=== PATIENT | male | born 1990 | race Caucasian/White ===

== ENCOUNTER 2021-10-29 20:55 | Emergency (ER) | payer MEDICARE, MEDICAID ==
[~2021-10-29] VITALS: Ht 182.9 cm; Wt 111.0 kg
[2021-10-29 23:02] LABS: BASOPHILS % 0.4 % (0.0-2.0); HEMATOCRIT. 38.3 % (42.0-52.0); MEAN CORPUSCULAR HEMOGLOBIN 28.5 pg (28.0-32.0); MEAN CORPUSCULAR VOLUME 83.9 fL (80.0-94.0); MEAN PLATELET VOLUME 8.2 fl (7.4-10.4); MONOCYTES % 10.6 % (2.0-8.0); PLATELET 172 x1000/uL (130-400); RED BLOOD CELL COUNT 4.56 mill/uL (4.7-6.1); RED CELL DISTRIBUTION WIDTH 14.9 % (11.6-14.6)
[2021-10-29 23:12] LABS: CHLORIDE 108 mEq/L (98-107)
[2021-10-29 23:43] LABS: CLARITY URINE CLEAR (CLEAR); COLOR URINE YELLOW (YELLOW); KETONES URINE TRACE (NEGATIVE); LEUKOCYTE ESTERASE URINE NEGATIVE (NEGATIVE); NITRITE URINE NEGATIVE (NEGATIVE); OCCULT BLOOD URINE NEGATIVE (NEGATIVE); PH URINE 6.5 (4.5-8.0); PROTEIN URINE NEGATIVE (NEGATIVE); SPECIFIC GRAVITY URINE 1.028 (1.005-1.030); UROBILINOGEN URINE 0.2 E.U./dL (0.2-1.0)
[2021-10-29 23:56] VITALS: BP 113/60
[2021-10-30] MEDS ORDERED: IBUPROFEN 600MG TABLET PO ONE
== END 2021-10-30 01:46 ==
LOC: ER 20:55
DX: G40.909 Epilepsy, unspecified, not intractable, without status epilepticus (principal); F99 Mental disorder, not otherwise specified; Z85.9 Personal history of malignant neoplasm, unspecified; Z98.890 Other specified postprocedural states; Z88.8 Allergy status to other drugs, medicaments and biological substances
CPT/HCPCS: 36415; 80053; 81003; 85025; 99284

== ENCOUNTER 2021-11-02 01:47 | Emergency (ER) | payer MEDICARE, MEDICAID ==
[~2021-11-02] VITALS: Ht 193 cm; Wt 130.0 kg
[2021-11-02] MEDS ORDERED: ONDANSETRON HCL 4MG/2ML INJ IV STA (03:17)
[2021-11-02] MEDS ORDERED: MORPHINE SULFATE 4 MG/ML CPJ (NOT FOR IM USE) IV STA (03:17)
[2021-11-02] MEDS ORDERED: LEVETIRACETAM 1000MG PREMIX 100 ML IV ONE (03:30)
[2021-11-02 04:03] LABS: CHLORIDE 107 mEq/L (98-107)
[2021-11-02 04:04] LABS: BASOPHILS % 0.3 % (0.0-2.0); EOSINOPHILS % 1.2 % (0.0-5.0); HEMATOCRIT. 42.2 % (42.0-52.0); HEMOGLOBIN. 13.9 g/dL (14.0-18.0); LYMPHOCYTES % 22.5 % (20.0-50.0); MEAN CORPUSCULAR HEMOGLOBIN 28.1 pg (28.0-32.0); MEAN CORPUSCULAR VOLUME 85.3 fL (80.0-94.0); MEAN PLATELET VOLUME 8.1 fl (7.4-10.4); MONOCYTES % 10.4 % (2.0-8.0); NEUTROPHILS % 65.6 % (40.0-76.0); PLATELET 156 x1000/uL (130-400); RED BLOOD CELL COUNT 4.94 mill/uL (4.7-6.1); RED CELL DISTRIBUTION WIDTH 14.8 % (11.6-14.6)
[2021-11-02 15:28] VITALS: BP 116/64
== END 2021-11-02 16:07 | disposition home or self-care (01) ==
LOC: ER 01:47
DX: R56.9 Unspecified convulsions (principal); Z98.890 Other specified postprocedural states; Z88.8 Allergy status to other drugs, medicaments and biological substances; Z91.041 Radiographic dye allergy status
CPT/HCPCS: 36415; 70450; 72125; 80053; 85025; 96365; 96375; 99285; J1953; J2270; J2405

== ENCOUNTER 2021-11-10 18:28 | Emergency (ER) | payer MEDICARE, MEDICAID ==
[~2021-11-10] VITALS: Ht 157.5 cm; Wt 100.0 kg
[2021-11-10] MEDS ORDERED: LEVETIRACETAM 1000MG PREMIX 100 ML IV ONE (19:00)
[2021-11-10] MEDS ORDERED: MIDAZOLAM HCL 2 MG/2 ML VIAL IV ONE (19:15)
[2021-11-10 19:42] LABS: BASOPHILS % 0.4 % (0.0-2.0); EOSINOPHILS % 2.6 % (0.0-5.0); HEMATOCRIT. 36.1 % (42.0-52.0); HEMOGLOBIN. 12.1 g/dL (14.0-18.0); LYMPHOCYTES % 23.8 % (20.0-50.0); MEAN CORPUSCULAR HEMOGLOBIN 28.7 pg (28.0-32.0); MEAN CORPUSCULAR VOLUME 85.3 fL (80.0-94.0); MEAN PLATELET VOLUME 7.8 fl (7.4-10.4); MONOCYTES % 11.5 % (2.0-8.0); NEUTROPHILS % 61.7 % (40.0-76.0); PLATELET 191 x1000/uL (130-400); RED BLOOD CELL COUNT 4.23 mill/uL (4.7-6.1); RED CELL DISTRIBUTION WIDTH 14.4 % (11.6-14.6)
[2021-11-10] MEDS ORDERED: SODIUM CHLORIDE 0.9% 1,000 ML IV ONE (19:45)
[2021-11-10 19:47] LABS: CHLORIDE 104 mEq/L (98-107)
[2021-11-10 20:01] LABS: ETHANOL BLOOD < 10 mg/dL
[2021-11-11 07:00] VITALS: BP 100/72
== END 2021-11-11 08:08 | disposition home or self-care (01) ==
LOC: ER 18:28
DX: G40.909 Epilepsy, unspecified, not intractable, without status epilepticus (principal); F20.9 Schizophrenia, unspecified; F31.9 Bipolar disorder, unspecified; F41.9 Anxiety disorder, unspecified; Z85.9 Personal history of malignant neoplasm, unspecified; Z88.8 Allergy status to other drugs, medicaments and biological substances; Z91.041 Radiographic dye allergy status
CPT/HCPCS: 36415; 80053; 80320; 85025; 96374; 96375; 99285; J1953; J2250; J7030; G0480

== ENCOUNTER 2021-11-17 21:33 | Emergency (ER) | payer MEDICARE, OTHER ==
[~2021-11-17] VITALS: Ht 188 cm; Wt 96.0 kg
[2021-11-18 00:10] LABS: BASOPHILS % 0.6 % (0.0-2.0); EOSINOPHILS % 3.2 % (0.0-5.0); HEMATOCRIT. 38.4 % (42.0-52.0); HEMOGLOBIN. 13.1 g/dL (14.0-18.0); LYMPHOCYTES % 39.6 % (20.0-50.0); MEAN CORPUSCULAR HEMOGLOBIN 28.8 pg (28.0-32.0); MEAN CORPUSCULAR VOLUME 84.4 fL (80.0-94.0); MEAN PLATELET VOLUME 7.4 fl (7.4-10.4); MONOCYTES % 6.7 % (2.0-8.0); NEUTROPHILS % 49.9 % (40.0-76.0); PLATELET 308 x1000/uL (130-400); RED BLOOD CELL COUNT 4.55 mill/uL (4.7-6.1); RED CELL DISTRIBUTION WIDTH 14.5 % (11.6-14.6)
[2021-11-18 00:13] LABS: CHLORIDE 104 mEq/L (98-107)
[2021-11-18 00:21] LABS: ETHANOL BLOOD < 10 mg/dL
[2021-11-18 00:43] LABS: CLARITY URINE CLEAR (CLEAR); COLOR URINE YELLOW (YELLOW); KETONES URINE NEGATIVE (NEGATIVE); LEUKOCYTE ESTERASE URINE NEGATIVE (NEGATIVE); NITRITE URINE NEGATIVE (NEGATIVE); OCCULT BLOOD URINE NEGATIVE (NEGATIVE); PH URINE 7.5 (4.5-8.0); PROTEIN URINE NEGATIVE (NEGATIVE); SPECIFIC GRAVITY URINE 1.017 (1.005-1.030); UROBILINOGEN URINE 0.2 E.U./dL (0.2-1.0)
[2021-11-18 01:00] LABS: *AMPHETAMINES SCREEN URINE NEGATIVE (NEGATIVE); *BARBITURATES SCREEN URINE NEGATIVE (NEGATIVE); *BENZODIAZEPINES SCREEN URINE NEGATIVE (NEGATIVE); *COCAINE SCREEN URINE NEGATIVE (NEGATIVE); CANNABINOID URINE SCREEN NEGATIVE (NEGATIVE); METHADONE URINE SCREEN NEGATIVE (NEGATIVE); OPIATES URINE SCREEN NEGATIVE (NEGATIVE); PHENCYCLIDINE URINE SCREEN NEGATIVE (NEGATIVE)
[2021-11-18] MEDS: LEVETIRACETAM 500MG PREMIX 100 ML IV NR ×2 (02:00→03:16)
[2021-11-18 09:18] VITALS: BP 106/61
== END 2021-11-18 09:39 | disposition home or self-care (01) ==
LOC: ER 11-18 09:34
DX: G40.909 Epilepsy, unspecified, not intractable, without status epilepticus (principal); F32.A Depression, unspecified; F41.9 Anxiety disorder, unspecified; F20.9 Schizophrenia, unspecified; Z87.828 Personal history of other (healed) physical injury and trauma; Z88.8 Allergy status to other drugs, medicaments and biological substances; Z91.041 Radiographic dye allergy status
CPT/HCPCS: 36415; 80053; 80305; 80320; 81003; 85025; 96365; 99284; J1953; G0480

== ENCOUNTER 2021-11-22 23:43 | Inpatient (IN) | payer MEDICARE, OTHER ==
[~2021-11-22] VITALS: Ht 193 cm; Wt 117.7 kg
[2021-11-23 00:53] LABS: BASOPHILS % 0.4 % (0.0-2.0); EOSINOPHILS % 1.9 % (0.0-5.0); HEMATOCRIT. 36.7 % (42.0-52.0); HEMOGLOBIN. 12.3 g/dL (14.0-18.0); LYMPHOCYTES % 40.1 % (20.0-50.0); MEAN CORPUSCULAR HEMOGLOBIN 28.5 pg (28.0-32.0); MEAN CORPUSCULAR VOLUME 85.6 fL (80.0-94.0); MEAN PLATELET VOLUME 8.1 fl (7.4-10.4); MONOCYTES % 8.3 % (2.0-8.0); NEUTROPHILS % 49.3 % (40.0-76.0); PLATELET 234 x1000/uL (130-400); RED BLOOD CELL COUNT 4.29 mill/uL (4.7-6.1); RED CELL DISTRIBUTION WIDTH 14.5 % (11.6-14.6)
[2021-11-23 02:05] LABS: CHLORIDE 108 mEq/L (98-107); ETHANOL BLOOD < 10 mg/dL
[2021-11-23] MEDS ORDERED: LEVETIRACETAM 500MG PREMIX 100 ML IV NR (04:00)
[2021-11-23] MEDS ORDERED: DIAZEPAM 5 MG/ML 2ML CPJ IV PRN (07:45)
[2021-11-23] MEDS ORDERED: MAGNESIUM/ALUMINUM HYDROXIDE/SIMETHICONE 30ML UDC PO PRN (07:45)
[2021-11-23] MEDS ORDERED: GUAIFENESIN 200MG/10ML SUGAR FREE UDC PO PRN (07:45)
[2021-11-23] MEDS ORDERED: IPRATROPIUM/ALBUTEROL 0.5-3(2.5)MG/3ML NEB NEB PRN (07:45)
[2021-11-23] MEDS ORDERED: ONDANSETRON HCL 4MG/2ML INJ IV PRN (07:45)
[2021-11-23] MEDS ORDERED: CLONIDINE 0.1MG TABLET PO PRN (07:45)
[2021-11-23] MEDS ORDERED: ACETAMINOPHEN 325MG TABLET PO PRN ×2 (07:45)
[2021-11-23] MEDS ORDERED: DOCUSATE SODIUM 100MG CAPSULE PO PRN (07:45)
[2021-11-23] MEDS ORDERED: KETOROLAC 15MG/ML VIAL IV PRN (07:45)
[2021-11-23 09:00] VITALS: BP 99/52
[2021-11-23 10:16] LABS: T4 FREE 0.71 ng/dL (0.76-1.46)
[2021-11-23] MEDS: ENOXAPARIN 40MG/0.4ML SYR SUBCUT SCH (11:10)
[2021-11-23] MEDS: DEXT 5%/LACTATED RINGERS 1,000 ML IV SCH ×2 (11:32→20:27)
[2021-11-23] MEDS: DIVALPROEX SODIUM 500MG DR TABLET PO SCH ×3 (11:32→21:18)
[2021-11-23 11:38] LABS: FOLIC ACID (FOLATE) SERUM 14.3 ng/mL (>5.38)
[2021-11-23 12:00] VITALS: BP 97/50
[2021-11-23] MEDS: LEVETIRACETAM 1000MG PREMIX 100 ML IV SCH ×2 (13:44→20:27)
[2021-11-23 15:05] VITALS: BP 99/52
[2021-11-23 16:00] VITALS: BP 106/55
[2021-11-23 19:33] LABS: CREATINE KINASE 160 IU/L (39-308); CREATINE KINASE MB FRACTION < 1.0 ng/mL (0.5-3.6)
[2021-11-23 20:00] VITALS: BP 106/62
[2021-11-23] MEDS ORDERED: PHENYTOIN SODIUM 500 MG in SODIUM CHLORIDE 0.9% 50 ML IV NR (20:00)
[2021-11-23] MEDS ORDERED: LEVETIRACETAM 500MG PREMIX 100 ML IV SCH (21:00)
[2021-11-23] MEDS: PHENYTOIN SODIUM EXTENDED 100MG CAPSULE PO SCH (21:21)
[2021-11-23 21:35] VITALS: BP 123/74
[2021-11-24] VITALS (7 sets, daily range): BP systolic 89–104; BP diastolic 43–52
[2021-11-24 00:02] LABS: CREATINE KINASE 144 IU/L (39-308); CREATINE KINASE MB FRACTION < 1.0 ng/mL (0.5-3.6)
[2021-11-24] MEDS: PHENYTOIN SODIUM EXTENDED 100MG CAPSULE PO SCH ×3 (05:05→21:33)
[2021-11-24] MEDS: DIVALPROEX SODIUM 500MG DR TABLET PO SCH ×3 (05:05→21:32)
[2021-11-24] MEDS: LEVOTHYROXINE SODIUM 50MCG TABLET PO SCH (06:42)
[2021-11-24 07:38] LABS: CHLORIDE 106 mEq/L (98-107)
[2021-11-24 07:40] LABS: BASOPHILS % 0.5 % (0.0-2.0); EOSINOPHILS % 1.8 % (0.0-5.0); HEMATOCRIT. 40.1 % (42.0-52.0); HEMOGLOBIN. 13.2 g/dL (14.0-18.0); LYMPHOCYTES % 25.9 % (20.0-50.0); MEAN CORPUSCULAR HEMOGLOBIN 28.7 pg (28.0-32.0); MEAN CORPUSCULAR VOLUME 86.7 fL (80.0-94.0); MEAN PLATELET VOLUME 8.5 fl (7.4-10.4); MONOCYTES % 7.1 % (2.0-8.0); NEUTROPHILS % 64.7 % (40.0-76.0); PLATELET 210 x1000/uL (130-400); RED BLOOD CELL COUNT 4.62 mill/uL (4.7-6.1); RED CELL DISTRIBUTION WIDTH 14.4 % (11.6-14.6)
[2021-11-24 07:58] LABS: PHOSPHORUS 3.2 mg/dL (2.5-4.9)
[2021-11-24 08:22] LABS: CLARITY URINE CLEAR (CLEAR); COLOR URINE YELLOW (YELLOW); KETONES URINE NEGATIVE (NEGATIVE); LEUKOCYTE ESTERASE URINE 1+ (NEGATIVE); NITRITE URINE NEGATIVE (NEGATIVE); OCCULT BLOOD URINE NEGATIVE (NEGATIVE); PH URINE 5.5 (4.5-8.0); PROTEIN URINE NEGATIVE (NEGATIVE); SPECIFIC GRAVITY URINE 1.015 (1.005-1.030); UROBILINOGEN URINE 0.2 E.U./dL (0.2-1.0)
[2021-11-24 08:41] LABS: *AMPHETAMINES SCREEN URINE NEGATIVE (NEGATIVE); *BARBITURATES SCREEN URINE NEGATIVE (NEGATIVE); *BENZODIAZEPINES SCREEN URINE PRESUMTIVE POSITIVE (NEGATIVE); *COCAINE SCREEN URINE NEGATIVE (NEGATIVE); CANNABINOID URINE SCREEN NEGATIVE (NEGATIVE); METHADONE URINE SCREEN NEGATIVE (NEGATIVE); OPIATES URINE SCREEN NEGATIVE (NEGATIVE); PHENCYCLIDINE URINE SCREEN NEGATIVE (NEGATIVE)
[2021-11-24] MEDS: LEVETIRACETAM 1000MG PREMIX 100 ML IV SCH ×2 (09:35→21:32)
[2021-11-24] MEDS: ENOXAPARIN 40MG/0.4ML SYR SUBCUT SCH (09:36)
[2021-11-24] MEDS: DEXT 5%/LACTATED RINGERS 1,000 ML IV SCH ×2 (09:36→23:40)
[2021-11-24] MEDS: ENOXAPARIN 30MG/0.3ML SYR SUBCUT SCH (21:32)
[2021-11-25] VITALS (7 sets, daily range): BP systolic 90–103; BP diastolic 50–64
[2021-11-25] MEDS ORDERED: KEPPSOL MT (03:13)
[2021-11-25] MEDS ORDERED: DIVA-18 MT (03:13)
[2021-11-25] MEDS ORDERED: GABA-529 PO (03:13)
[2021-11-25] MEDS ORDERED: PALI156D IM (03:13)
[2021-11-25] MEDS ORDERED: CHLO10TA9 MT (03:13)
[2021-11-25] MEDS: PHENYTOIN SODIUM EXTENDED 100MG CAPSULE PO SCH ×3 (06:20→20:24)
[2021-11-25] MEDS: DIVALPROEX SODIUM 500MG DR TABLET PO SCH ×3 (06:21→20:23)
[2021-11-25] MEDS: LEVOTHYROXINE SODIUM 50MCG TABLET PO SCH (06:21)
[2021-11-25 07:27] LABS: HEMATOCRIT 37.9 % (42.0-52.0); HEMOGLOBIN 12.7 g/dL (14.0-18.0); MEAN CORPUSCULAR HEMOGLOBIN 28.8 pg (28.0-32.0); MEAN CORPUSCULAR VOLUME 85.7 fL (80.0-94.0); PLATELET 205 x1000/uL (130-400); RED BLOOD CELL COUNT 4.42 mill/uL (4.7-6.1); RED CELL DISTRIBUTION WIDTH 14.2 % (11.6-14.6)
[2021-11-25] MEDS: ENOXAPARIN 30MG/0.3ML SYR SUBCUT SCH ×2 (08:36→20:24)
[2021-11-25] MEDS: LEVETIRACETAM 500MG TABLET PO SCH ×2 (08:37→18:09)
[2021-11-25 08:38] LABS: CHLORIDE 105 mEq/L (98-107)
[2021-11-25] MEDS: MIDODRINE HCL 5MG TABLET PO SCH ×3 (10:57→18:10)
[2021-11-25] MEDS ORDERED: PHENYTOIN SODIUM 500 MG in SODIUM CHLORIDE 0.9% 50 ML IV SCH (13:00)
[2021-11-25] MEDS: DEXT 5%/LACTATED RINGERS 1,000 ML IV SCH (13:19)
[2021-11-26] VITALS: BP 101/50
[2021-11-26 04:00] VITALS: BP 91/53
[2021-11-26] MEDS: PHENYTOIN SODIUM EXTENDED 100MG CAPSULE PO SCH ×3 (06:36→20:10)
[2021-11-26] MEDS: LEVOTHYROXINE SODIUM 50MCG TABLET PO SCH (06:36)
[2021-11-26] MEDS: DEXT 5%/LACTATED RINGERS 1,000 ML IV SCH ×2 (06:36→17:16)
[2021-11-26] MEDS: DIVALPROEX SODIUM 500MG DR TABLET PO SCH ×3 (06:36→20:08)
[2021-11-26 08:00] VITALS: BP 92/45
[2021-11-26] MEDS: ENOXAPARIN 30MG/0.3ML SYR SUBCUT SCH ×2 (09:18→20:07)
[2021-11-26] MEDS: LEVETIRACETAM 500MG TABLET PO SCH ×2 (09:18→17:16)
[2021-11-26] MEDS: MIDODRINE HCL 5MG TABLET PO SCH ×3 (09:21→17:16)
[2021-11-26 12:00] VITALS: BP 104/52
[2021-11-26 16:00] VITALS: BP 87/42
[2021-11-26 20:00] VITALS: BP 100/45
[2021-11-27] VITALS: BP_SYST 103; BP_SYST 93; BP_DIAS 43; BP_DIAS 50
[2021-11-27 04:10] VITALS: BP 91/43
[2021-11-27] MEDS: PHENYTOIN SODIUM EXTENDED 100MG CAPSULE PO SCH ×2 (05:44→13:11)
[2021-11-27] MEDS: DEXT 5%/LACTATED RINGERS 1,000 ML IV SCH (05:47)
[2021-11-27] MEDS: LEVOTHYROXINE SODIUM 50MCG TABLET PO SCH (05:48)
[2021-11-27] MEDS: DIVALPROEX SODIUM 500MG DR TABLET PO SCH ×2 (05:48→13:14)
[2021-11-27 08:30] VITALS: BP 134/42
[2021-11-27] MEDS: LEVETIRACETAM 500MG TABLET PO SCH ×2 (09:42→17:50)
[2021-11-27] MEDS: MIDODRINE HCL 5MG TABLET PO SCH ×3 (09:42→17:49)
[2021-11-27] MEDS: ENOXAPARIN 30MG/0.3ML SYR SUBCUT SCH (09:43)
[2021-11-27 12:00] VITALS: BP 98/43
[2021-11-27 20:37] VITALS: BP 98/43
[2021-12-01] MEDS ORDERED: LAM25 PO (14:45)
[2021-12-01] MEDS ORDERED: RISP1 PO (14:45)
[2021-12-01] MEDS ORDERED: LACO100T2 PO (14:45)
[2021-12-01] MEDS ORDERED: TH25 PO (14:45)
[2021-12-01] MEDS ORDERED: KEPP500 PO (14:45)
[2021-12-01] MEDS ORDERED: QUET50TA PO (14:45)
[2021-12-01] MEDS ORDERED: CLON0.5T4 PO ×2 (14:45→20:42)
== END 2021-11-27 20:40 | DRG 100 ==
LOC: ER 23:43 → 6WST 11-23 05:15 → ENRESERV 11-23 08:03 → 6WST 11-23 09:05
PROVIDERS: ADMIT Internal Medicine; ATTEND Internal Medicine
DX: G40.901 Epilepsy, unspecified, not intractable, with status epilepticus (principal); G92.8 Other toxic encephalopathy; J96.01 Acute respiratory failure with hypoxia; G93.41 Metabolic encephalopathy; E44.1 Mild protein-calorie malnutrition; F25.9 Schizoaffective disorder, unspecified; F41.9 Anxiety disorder, unspecified; E03.9 Hypothyroidism, unspecified; I95.89 Other hypotension; Z88.8 Allergy status to other drugs, medicaments and biological substances; F31.9 Bipolar disorder, unspecified; Z68.31 Body mass index [BMI] 31.0-31.9, adult; F17.210 Nicotine dependence, cigarettes, uncomplicated; Z91.041 Radiographic dye allergy status
CPT/HCPCS: 36415; 71045; 80048; 80053; 80185; 80305; 80320; 81003; 82550; 82553; 82607; 82746; 82962; 83540; 83550; 83605; 83735; 84100; 84145; 84439; 84443; 84484; 85025; 85027; 85379; 87077; 87186; 93970; 99285; J1165; J1650; J1953; G0480

== ENCOUNTER 2021-11-28 18:57 | Inpatient (IN) | payer MEDICARE, OTHER ==
[~2021-11-28] VITALS: Ht 193 cm; Wt 104.3 kg
[~2021-11-28 18:57] MED LIST: CHLO10TA9 MT; DIVA-18 MT; GABA-529 PO; KEPPSOL MT; PALI156D IM
[2021-11-28] MEDS ORDERED: LEVETIRACETAM 500MG PREMIX 100 ML IV ONE (19:15)
[2021-11-28 21:55] LABS: CHLORIDE 108 mEq/L (98-107)
[2021-11-28 21:56] LABS: BASOPHILS % 0.9 % (0.0-2.0); HEMATOCRIT. 35.3 % (42.0-52.0); HEMOGLOBIN. 11.8 g/dL (14.0-18.0); LYMPHOCYTES % 41.9 % (20.0-50.0); MEAN CORPUSCULAR HEMOGLOBIN 28.6 pg (28.0-32.0); MEAN CORPUSCULAR VOLUME 85.6 fL (80.0-94.0); MEAN PLATELET VOLUME 8.6 fl (7.4-10.4); MONOCYTES % 8.7 % (2.0-8.0); NEUTROPHILS % 46.5 % (40.0-76.0); PLATELET 197 x1000/uL (130-400); RED BLOOD CELL COUNT 4.13 mill/uL (4.7-6.1)
[2021-11-28 22:02] LABS: ETHANOL BLOOD < 10 mg/dL
[2021-11-29] MEDS ORDERED: NOREPINEPHRINE 8MG/250ML PMX 250 ML IV ONE (02:30)
[2021-11-29] MEDS ORDERED: NOREPINEPHRINE 8MG/250ML PMX 250 ML IV NR (03:00)
[2021-11-29] MEDS ORDERED: HYDROCODONE/ACETAMINOPHEN 5/325MG TABLET PO PRN (07:15)
[2021-11-29] MEDS ORDERED: MAGNESIUM/ALUMINUM HYDROXIDE/SIMETHICONE 30ML UDC PO PRN (07:15)
[2021-11-29] MEDS ORDERED: IPRATROPIUM/ALBUTEROL 0.5-3(2.5)MG/3ML NEB NEB PRN (07:15)
[2021-11-29] MEDS ORDERED: ONDANSETRON HCL 4MG/2ML INJ IV PRN (07:15)
[2021-11-29] MEDS ORDERED: ACETAMINOPHEN 325MG TABLET PO PRN ×2 (07:15)
[2021-11-29] MEDS ORDERED: GUAIFENESIN 200MG/10ML SUGAR FREE UDC PO PRN (07:15)
[2021-11-29] MEDS: SODIUM CHLORIDE 0.45% 1,000 ML IV SCH ×2 (07:15→22:14)
[2021-11-29] MEDS ORDERED: CLONIDINE 0.1MG TABLET PO PRN (07:15)
[2021-11-29] MEDS ORDERED: LIDOCAINE HCL/PF 1% 10 MG/ML 5ML VIAL ONE (08:21)
[2021-11-29 08:34] LABS: BASOPHILS % 0.3 % (0.0-2.0); EOSINOPHILS % 2.1 % (0.0-5.0); HEMATOCRIT. 35.8 % (42.0-52.0); LYMPHOCYTES % 39.7 % (20.0-50.0); MEAN CORPUSCULAR HEMOGLOBIN 28.8 pg (28.0-32.0); MEAN CORPUSCULAR VOLUME 85.7 fL (80.0-94.0); MEAN PLATELET VOLUME 8.1 fl (7.4-10.4); MONOCYTES % 8.6 % (2.0-8.0); NEUTROPHILS % 49.3 % (40.0-76.0); PLATELET 172 x1000/uL (130-400); RED BLOOD CELL COUNT 4.17 mill/uL (4.7-6.1); RED CELL DISTRIBUTION WIDTH 13.9 % (11.6-14.6)
[2021-11-29 08:39] LABS: CHLORIDE 112 mEq/L (98-107)
[2021-11-29 08:53] LABS: PHOSPHORUS 2.6 mg/dL (2.5-4.9); T4 FREE 0.75 ng/dL (0.76-1.46); TOTAL IRON BINDING CAPACITY 235 ug/dL (250-450)
[2021-11-29] MEDS: ENOXAPARIN 40MG/0.4ML SYR SUBCUT SCH (09:00)
[2021-11-29 13:30] VITALS: BP 101/54
[2021-11-29 15:00] VITALS: BP 157/60
[2021-11-29] MEDS ORDERED: MIDAZOLAM HCL 2 MG/2 ML VIAL IV PRN (15:15)
[2021-11-29 16:00] VITALS: BP 103/56
[2021-11-29] MEDS ORDERED: NALOXONE HCL 0.4MG/ML VIAL IV PRN (16:00)
[2021-11-29 16:30] LABS: FOLIC ACID (FOLATE) SERUM 9.5 ng/mL (>5.38)
[2021-11-29 20:00] VITALS: BP 85/42
[2021-11-29] MEDS: LEVETIRACETAM 500MG TABLET PO SCH (21:52)
[2021-11-29] MEDS: LAMOTRIGINE 25MG TABLET PO SCH (21:52)
[2021-11-29] MEDS: LACOSAMIDE 100 MG TABLET PO SCH (21:53)
[2021-11-30] VITALS: BP 85/40
[2021-11-30 04:00] VITALS: BP 84/44
[2021-11-30 07:30] LABS: BASOPHILS % 0.3 % (0.0-2.0); EOSINOPHILS % 2.2 % (0.0-5.0); HEMATOCRIT. 35.5 % (42.0-52.0); HEMOGLOBIN. 12.1 g/dL (14.0-18.0); LYMPHOCYTES % 32.1 % (20.0-50.0); MEAN CORPUSCULAR HEMOGLOBIN 29.2 pg (28.0-32.0); MEAN PLATELET VOLUME 8.8 fl (7.4-10.4); MONOCYTES % 9.3 % (2.0-8.0); NEUTROPHILS % 56.1 % (40.0-76.0); PLATELET 178 x1000/uL (130-400); RED BLOOD CELL COUNT 4.13 mill/uL (4.7-6.1); RED CELL DISTRIBUTION WIDTH 14.4 % (11.6-14.6)
[2021-11-30 08:00] VITALS: BP 100/48
[2021-11-30] MEDS: LACOSAMIDE 100 MG TABLET PO SCH ×2 (08:41→17:33)
[2021-11-30] MEDS: LEVETIRACETAM 500MG TABLET PO SCH ×2 (08:42→22:11)
[2021-11-30] MEDS: LAMOTRIGINE 25MG TABLET PO SCH (08:42)
[2021-11-30] MEDS: SODIUM CHLORIDE 0.45% 1,000 ML IV SCH ×3 (08:43→22:25)
[2021-11-30] MEDS: ENOXAPARIN 40MG/0.4ML SYR SUBCUT SCH (08:45)
[2021-11-30 09:02] LABS: CHLORIDE 109 mEq/L (98-107)
[2021-11-30] MEDS: RISPERIDONE 1MG TABLET PO SCH (11:39)
[2021-11-30 12:00] VITALS: BP 100/56
[2021-11-30] MEDS ORDERED: GADOTERATE MEGLUMINE 5 MMOL/10 ML VIAL IV ONE (13:50)
[2021-11-30] MEDS: CHLORPROMAZINE HCL 25 MG TABLET PO SCH ×2 (15:22→23:55)
[2021-11-30 16:00] VITALS: BP 97/51
[2021-11-30] MEDS ORDERED: DIPHENHYDRAMINE 25MG CAPSULE PO PRN (19:43)
[2021-11-30 20:00] VITALS: BP 97/52
[2021-11-30] MEDS: ENOXAPARIN 30MG/0.3ML SYR SUBCUT SCH (22:11)
[2021-11-30] MEDS: CLONAZEPAM 0.5MG TABLET PO SCH (22:11)
[2021-11-30] MEDS: QUETIAPINE FUMARATE 50MG TABLET PO SCH (22:55)
[2021-12-01] VITALS: BP 103/68
[2021-12-01 04:00] VITALS: BP 93/56
[2021-12-01] MEDS: CHLORPROMAZINE HCL 25 MG TABLET PO SCH ×2 (05:53→15:21)
[2021-12-01 08:00] VITALS: BP 93/59
[2021-12-01] MEDS: SODIUM CHLORIDE 0.45% 1,000 ML IV SCH ×2 (09:32→18:22)
[2021-12-01] MEDS: LEVETIRACETAM 500MG TABLET PO SCH ×2 (09:32→21:37)
[2021-12-01] MEDS: LAMOTRIGINE 25MG TABLET PO SCH (09:32)
[2021-12-01] MEDS: LACOSAMIDE 100 MG TABLET PO SCH ×2 (09:32→18:05)
[2021-12-01] MEDS: CLONAZEPAM 0.5MG TABLET PO SCH ×2 (09:33→17:00)
[2021-12-01] MEDS: QUETIAPINE FUMARATE 50MG TABLET PO SCH ×2 (09:33→21:38)
[2021-12-01] MEDS: ENOXAPARIN 30MG/0.3ML SYR SUBCUT SCH ×2 (09:33→21:38)
[2021-12-01] MEDS: RISPERIDONE 1MG TABLET PO SCH (09:33)
[2021-12-01 12:30] VITALS: BP 91/51
[2021-12-01] MEDS ORDERED: QUET50TA PO (14:45)
[2021-12-01] MEDS ORDERED: CLON0.5T4 PO ×2 (14:45→20:42)
[2021-12-01] MEDS ORDERED: TH25 PO (14:45)
[2021-12-01] MEDS ORDERED: LACO100T2 PO (14:45)
[2021-12-01] MEDS ORDERED: RISP1 PO (14:45)
[2021-12-01] MEDS ORDERED: LAM25 PO (14:45)
[2021-12-01] MEDS ORDERED: KEPP500 PO (14:45)
[2021-12-01 16:00] VITALS: BP 92/61
[2021-12-01 20:00] VITALS: BP 94/54
[2021-12-01] MEDS ORDERED: CLONAZEPAM 0.5MG TABLET PO SCH (21:00)
[2021-12-02] VITALS: BP 93/48
[2021-12-02] MEDS: CHLORPROMAZINE HCL 25 MG TABLET PO SCH ×3 (00:32→14:34)
[2021-12-02 04:00] VITALS: BP 99/60
[2021-12-02] MEDS: SODIUM CHLORIDE 0.45% 1,000 ML IV SCH (04:44)
[2021-12-02 08:00] VITALS: BP 118/49
[2021-12-02] MEDS: QUETIAPINE FUMARATE 50MG TABLET PO SCH (09:25)
[2021-12-02] MEDS: LACOSAMIDE 100 MG TABLET PO SCH (09:26)
[2021-12-02] MEDS: LAMOTRIGINE 25MG TABLET PO SCH (09:27)
[2021-12-02] MEDS: LEVETIRACETAM 500MG TABLET PO SCH (09:27)
[2021-12-02] MEDS: RISPERIDONE 1MG TABLET PO SCH (09:27)
[2021-12-02] MEDS: ENOXAPARIN 30MG/0.3ML SYR SUBCUT SCH (09:28)
[2021-12-02 12:30] VITALS: BP 95/58
[2021-12-02 12:55] VITALS: BP 95/58
== END 2021-12-02 16:35 | DRG 101 ==
LOC: ER 18:57 → EDBEDREQTM 11-29 02:00 → EDBEDREQ 11-29 02:00 → MICUSO 11-29 02:30 → EDBEDREQDT 11-29 02:35 → EDBEDREQTM 11-29 02:35 → EDBEDREQSVC 11-29 02:35 → EDBEDREQ 11-29 02:35 → SUPCPDRO 11-29 06:50 → ENRESERV 11-29 07:28 → EDBEDREQSVC 11-29 09:41 → 8WST 11-29 13:52
PROVIDERS: ADMIT Internal Medicine; ATTEND Internal Medicine
PROC: 02HV33Z Insertion of Infusion Device into Superior Vena Cava, Percutaneous Approach (ICD-10-PCS; 2021-11-29)
PROC: B548ZZA Ultrasonography of Superior Vena Cava, Guidance (ICD-10-PCS; 2021-11-29)
PROC: 4A10X4Z Monitoring of Central Nervous Electrical Activity, External Approach (ICD-10-PCS; principal; 2021-12-01)
DX: G40.411 Other generalized epilepsy and epileptic syndromes, intractable, with status epilepticus (principal); I95.9 Hypotension, unspecified; F17.210 Nicotine dependence, cigarettes, uncomplicated; F20.9 Schizophrenia, unspecified; F31.9 Bipolar disorder, unspecified; Z20.822 Contact with and (suspected) exposure to COVID-19; F41.9 Anxiety disorder, unspecified; Z88.8 Allergy status to other drugs, medicaments and biological substances; Z79.899 Other long term (current) drug therapy; Z85.47 Personal history of malignant neoplasm of testis
CPT/HCPCS: 36415; 36573; 70553; 71045; 80048; 80053; 80185; 80320; 80339; 82542; 82607; 82728; 82746; 83540; 83550; 83735; 84100; 84439; 84443; 85025; 87426; 93005; 95816; 99291; A9577; C1725; J1650; J1953; J3490; Q0161; G0480

== ENCOUNTER 2021-12-17 20:46 | Emergency (ER) | payer MEDICARE, OTHER ==
[~2021-12-17] VITALS: Ht 182.9 cm; Wt 91.0 kg
[~2021-12-17 20:46] MED LIST changes: -CHLO10TA9 MT; +CLON0.5T4 PO; -DIVA-18 MT; +KEPP500 PO; -KEPPSOL MT; +LACO100T2 PO; +LAM25 PO; +QUET50TA PO; +RISP1 PO; +TH25 PO
[2021-12-17] MEDS ORDERED: LEVETIRACETAM 500MG PREMIX 100 ML IV ONE (21:00)
[2021-12-17 21:52] LABS: BASOPHILS % 0.6 % (0.0-2.0); EOSINOPHILS % 2.5 % (0.0-5.0); HEMATOCRIT. 38.3 % (42.0-52.0); HEMOGLOBIN. 13.2 g/dL (14.0-18.0); LYMPHOCYTES % 42.1 % (20.0-50.0); MEAN CORPUSCULAR HEMOGLOBIN 29.2 pg (28.0-32.0); MEAN CORPUSCULAR VOLUME 84.6 fL (80.0-94.0); MEAN PLATELET VOLUME 8.1 fl (7.4-10.4); MONOCYTES % 8.1 % (2.0-8.0); NEUTROPHILS % 46.7 % (40.0-76.0); PLATELET 161 x1000/uL (130-400); RED BLOOD CELL COUNT 4.53 mill/uL (4.7-6.1); RED CELL DISTRIBUTION WIDTH 14.2 % (11.6-14.6)
[2021-12-17 21:56] LABS: CHLORIDE 106 mEq/L (98-107)
[2021-12-17 22:05] LABS: ETHANOL BLOOD < 10 mg/dL
[2021-12-17] MEDS ORDERED: KETOROLAC 30MG/ML VIAL IV ONE (22:30)
[2021-12-17] MEDS ORDERED: ONDANSETRON HCL 4MG/2ML INJ IV ONE (22:30)
[2021-12-17] MEDS ORDERED: ACETAMINOPHEN 325MG TABLET PO ONE (22:30)
[2021-12-17] MEDS ORDERED: FAMOTIDINE 20MG/2ML VIAL IV ONE (22:30)
[2021-12-17 23:42] LABS: CLARITY URINE CLEAR (CLEAR); COLOR URINE YELLOW (YELLOW); KETONES URINE NEGATIVE (NEGATIVE); LEUKOCYTE ESTERASE URINE NEGATIVE (NEGATIVE); NITRITE URINE NEGATIVE (NEGATIVE); OCCULT BLOOD URINE NEGATIVE (NEGATIVE); PH URINE 6.5 (4.5-8.0); PROTEIN URINE NEGATIVE (NEGATIVE); SPECIFIC GRAVITY URINE 1.013 (1.005-1.030); UROBILINOGEN URINE 0.2 E.U./dL (0.2-1.0)
[2021-12-18 00:08] LABS: *AMPHETAMINES SCREEN URINE NEGATIVE (NEGATIVE); *BARBITURATES SCREEN URINE NEGATIVE (NEGATIVE); *BENZODIAZEPINES SCREEN URINE NEGATIVE (NEGATIVE); *COCAINE SCREEN URINE NEGATIVE (NEGATIVE); CANNABINOID URINE SCREEN NEGATIVE (NEGATIVE); METHADONE URINE SCREEN NEGATIVE (NEGATIVE); OPIATES URINE SCREEN NEGATIVE (NEGATIVE); PHENCYCLIDINE URINE SCREEN NEGATIVE (NEGATIVE)
[2021-12-18 10:12] VITALS: BP 108/65
== END 2021-12-18 10:12 ==
LOC: ER 20:46
DX: G40.909 Epilepsy, unspecified, not intractable, without status epilepticus (principal); R07.89 Other chest pain; F32.A Depression, unspecified; D41.9 Neoplasm of uncertain behavior of unspecified urinary organ; F79 Unspecified intellectual disabilities; G62.9 Polyneuropathy, unspecified; Z85.47 Personal history of malignant neoplasm of testis; Z87.891 Personal history of nicotine dependence; Z88.8 Allergy status to other drugs, medicaments and biological substances; Z91.041 Radiographic dye allergy status
CPT/HCPCS: 36415; 71045; 80053; 80305; 80320; 81003; 82962; 84484; 85025; 93005; 96365; 96375; 99285; J1885; J1953; J2405; J3490; G0480

== ENCOUNTER 2021-12-22 19:05 | Emergency (ER) | payer MEDICARE, OTHER ==
[~2021-12-22] VITALS: Ht 182.9 cm; Wt 115.0 kg
[2021-12-22] MEDS ORDERED: LEVETIRACETAM 500MG TABLET PO ONE (19:45)
[2021-12-22 19:58] LABS: CHLORIDE 106 mEq/L (98-107)
[2021-12-22 20:00] LABS: BASOPHILS % 0.4 % (0.0-2.0); HEMATOCRIT. 37.3 % (42.0-52.0); HEMOGLOBIN. 12.8 g/dL (14.0-18.0); LYMPHOCYTES % 34.2 % (20.0-50.0); MEAN CORPUSCULAR HEMOGLOBIN 28.8 pg (28.0-32.0); MEAN CORPUSCULAR VOLUME 83.9 fL (80.0-94.0); MONOCYTES % 8.8 % (2.0-8.0); NEUTROPHILS % 54.6 % (40.0-76.0); RED BLOOD CELL COUNT 4.45 mill/uL (4.7-6.1)
[2021-12-22 20:34] LABS: MEAN PLATELET VOLUME 8.8 fl (7.4-10.4); PLATELET 156 x1000/uL (130-400)
[2021-12-23] VITALS: BP 110/61
== END 2021-12-23 11:28 | disposition home or self-care (01) ==
LOC: ER 19:05
DX: G40.909 Epilepsy, unspecified, not intractable, without status epilepticus (principal); F32.A Depression, unspecified; F41.9 Anxiety disorder, unspecified; F20.9 Schizophrenia, unspecified; Z85.47 Personal history of malignant neoplasm of testis; Z90.79 Acquired absence of other genital organ(s); Z88.8 Allergy status to other drugs, medicaments and biological substances; Z91.041 Radiographic dye allergy status
CPT/HCPCS: 36415; 80053; 85025; 99285

== ENCOUNTER 2021-12-28 20:37 | Inpatient (IN) | payer MEDICARE, OTHER ==
[~2021-12-28] VITALS: Ht 193 cm; Wt 105.7 kg
[2021-12-28] MEDS ORDERED: LEVETIRACETAM 1000MG PREMIX 100 ML IV ONE (21:15)
[2021-12-28] MEDS ORDERED: SODIUM CHLORIDE 0.9% 1,000 ML IV ONE ×2 (21:15→23:00)
[2021-12-28 22:03] LABS: BASOPHILS % 0.5 % (0.0-2.0); EOSINOPHILS % 2.5 % (0.0-5.0); HEMATOCRIT. 36.4 % (42.0-52.0); HEMOGLOBIN. 12.6 g/dL (14.0-18.0); LYMPHOCYTES % 35.3 % (20.0-50.0); MEAN CORPUSCULAR HEMOGLOBIN 28.9 pg (28.0-32.0); MEAN CORPUSCULAR VOLUME 83.3 fL (80.0-94.0); MEAN PLATELET VOLUME 7.7 fl (7.4-10.4); MONOCYTES % 10.2 % (2.0-8.0); NEUTROPHILS % 51.5 % (40.0-76.0); PLATELET 220 x1000/uL (130-400); RED BLOOD CELL COUNT 4.37 mill/uL (4.7-6.1)
[2021-12-28 22:04] LABS: CHLORIDE 105 mEq/L (98-107)
[2021-12-28 22:15] LABS: ETHANOL BLOOD < 10 mg/dL
[2021-12-28 22:19] LABS: CARBAMAZEPINE < 0.5 ug/mL (4-12); VALPROIC ACID < 3.0 ug/mL (50-100)
[2021-12-29 03:42] LABS: CLARITY URINE CLEAR (CLEAR); COLOR URINE YELLOW (YELLOW); KETONES URINE NEGATIVE (NEGATIVE); LEUKOCYTE ESTERASE URINE 2+ (NEGATIVE); NITRITE URINE POSITIVE (NEGATIVE); OCCULT BLOOD URINE NEGATIVE (NEGATIVE); PROTEIN URINE NEGATIVE (NEGATIVE); SPECIFIC GRAVITY URINE 1.018 (1.005-1.030); UROBILINOGEN URINE 0.2 E.U./dL (0.2-1.0)
[2021-12-29 03:54] LABS: *AMPHETAMINES SCREEN URINE NEGATIVE (NEGATIVE); *BARBITURATES SCREEN URINE NEGATIVE (NEGATIVE); *BENZODIAZEPINES SCREEN URINE PRESUMTIVE POSITIVE (NEGATIVE); *COCAINE SCREEN URINE NEGATIVE (NEGATIVE); CANNABINOID URINE SCREEN NEGATIVE (NEGATIVE); METHADONE URINE SCREEN NEGATIVE (NEGATIVE); OPIATES URINE SCREEN NEGATIVE (NEGATIVE); PHENCYCLIDINE URINE SCREEN NEGATIVE (NEGATIVE)
[2021-12-29] MEDS ORDERED: MIDO5TAB4 PO (04:06)
[2021-12-29] MEDS ORDERED: FLUO20CA33 PO (04:06)
[2021-12-29] MEDS ORDERED: ONDA4TAB11 PO (04:06)
[2021-12-29] MEDS ORDERED: ASPI-1406 PO (04:06)
[2021-12-29] MEDS ORDERED: [UNRECOGNIZED DRUG - CODE] (04:06)
[2021-12-29] MEDS ORDERED: IPRA4AER IH (04:06)
[2021-12-29] MEDS ORDERED: HYDR-4001 PO (04:06)
[2021-12-29] MEDS ORDERED: CLON-457 MT (04:06)
[2021-12-29] MEDS ORDERED: FAMO40TA70 MT (04:06)
[2021-12-29] MEDS ORDERED: MYL30 PO (04:06)
[2021-12-29] MEDS ORDERED: DIPH25CA83 PO (04:06)
[2021-12-29] MEDS ORDERED: ACET-3163 MT (04:06)
[2021-12-29] MEDS ORDERED: [UNRECOGNIZED DRUG - CODE] IJ (04:06)
[2021-12-29] MEDS ORDERED: NALO4SPR NS (04:06)
[2021-12-29] MEDS ORDERED: INFLUENZA VACCINE 05/PF 0.5 ML SYRINGE IM ONE (04:30)
[2021-12-29] MEDS ORDERED: PNEUMOCOCCAL 23-VAL P-SAC VAC 0.5 ML IM ONE (04:30)
[2021-12-29 04:37] VITALS: BP 120/51
[2021-12-29] MEDS ORDERED: ACETAMINOPHEN 325MG TABLET PO PRN ×2 (04:45)
[2021-12-29] MEDS ORDERED: GUAIFENESIN 200MG/10ML SUGAR FREE UDC PO PRN (04:45)
[2021-12-29] MEDS ORDERED: IPRATROPIUM/ALBUTEROL 0.5-3(2.5)MG/3ML NEB HHN PRN (04:45)
[2021-12-29] MEDS ORDERED: CLONIDINE 0.1MG TABLET PO PRN (04:45)
[2021-12-29] MEDS ORDERED: HYDROCODONE/ACETAMINOPHEN 5/325MG TABLET PO PRN (04:45)
[2021-12-29] MEDS ORDERED: MAGNESIUM/ALUMINUM HYDROXIDE/SIMETHICONE 30ML UDC PO PRN (04:45)
[2021-12-29] MEDS ORDERED: DOCUSATE SODIUM 100MG CAPSULE PO PRN (04:45)
[2021-12-29] MEDS ORDERED: ONDANSETRON HCL 4MG/2ML INJ IV PRN (04:45)
[2021-12-29] MEDS ORDERED: NALOXONE HCL 0.4MG/ML VIAL IV PRN (05:15)
[2021-12-29 06:43] LABS: CREATINE KINASE 119 IU/L (39-308)
[2021-12-29] MEDS ORDERED: LAMOTRIGINE 25MG TABLET PO SCH (10:00)
[2021-12-29] MEDS ORDERED: LEVETIRACETAM 500MG TABLET PO SCH (10:00)
[2021-12-29] MEDS ORDERED: CEFTRIAXONE 1 G PREMIX 50 ML IV SCH (10:00)
[2021-12-29] MEDS: RISPERIDONE 1MG TABLET PO SCH (10:23)
[2021-12-29] MEDS: LEVETIRACETAM 500MG TABLET PO SCH ×2 (10:23→21:08)
[2021-12-29] MEDS: PANTOPRAZOLE SODIUM 40 MG/VIAL IV SCH (10:24)
[2021-12-29] MEDS: ENOXAPARIN 40MG/0.4ML SYR SUBCUT SCH (10:26)
[2021-12-29] MEDS: QUETIAPINE FUMARATE 50MG TABLET PO SCH ×2 (10:37→21:08)
[2021-12-29] MEDS: CEFTRIAXONE 1,000 MG in DEXTROSE 5% WATER 50 ML IV SCH (12:50)
[2021-12-29] MEDS ORDERED: GABAPENTIN 100MG CAPSULE PO SCH (13:00)
[2021-12-29 16:00] VITALS: BP_SYST 118; BP_SYST 95; BP_DIAS 46; BP_DIAS 60
[2021-12-29] MEDS ORDERED: DIAZEPAM 5 MG/ML 2ML CPJ IV PRN (17:30)
[2021-12-29] MEDS: LACOSAMIDE 100 MG TABLET PO SCH (17:58)
[2021-12-29] MEDS: LAMOTRIGINE 25MG TABLET PO SCH (17:58)
[2021-12-29 19:03] LABS: CREATINE KINASE 94 IU/L (39-308)
[2021-12-29 20:00] VITALS: BP 105/62
[2021-12-30] VITALS: BP 92/65
[2021-12-30] MEDS: LACOSAMIDE 100 MG TABLET PO SCH (05:19)
[2021-12-30 08:00] VITALS: BP 91/60
[2021-12-30] MEDS: LEVETIRACETAM 500MG TABLET PO SCH (08:12)
[2021-12-30] MEDS: LAMOTRIGINE 25MG TABLET PO SCH (08:13)
[2021-12-30] MEDS: RISPERIDONE 1MG TABLET PO SCH (08:13)
[2021-12-30] MEDS: QUETIAPINE FUMARATE 50MG TABLET PO SCH (08:13)
[2021-12-30] MEDS: PANTOPRAZOLE SODIUM 40 MG/VIAL IV SCH (08:14)
[2021-12-30] MEDS: ENOXAPARIN 40MG/0.4ML SYR SUBCUT SCH (08:14)
[2021-12-30 08:55] LABS: CHLORIDE 105 mEq/L (98-107)
[2021-12-30 09:11] LABS: T4 FREE 0.86 ng/dL (0.76-1.46)
[2021-12-30] MEDS: CEFTRIAXONE 1,000 MG in DEXTROSE 5% WATER 50 ML IV SCH (11:15)
[2021-12-30 12:00] VITALS: BP_SYST 102; BP_SYST 110; BP_DIAS 70
[2021-12-31] MEDS ORDERED: FAMOTIDINE 20MG/2ML VIAL IV SCH (09:00)
== END 2021-12-30 16:21 | DRG 100 ==
LOC: ER 20:37 → ENRESERV 12-29 01:39 → 8WST 12-29 04:06
PROVIDERS: ADMIT Hospitalist; ATTEND Hospitalist
DX: G40.909 Epilepsy, unspecified, not intractable, without status epilepticus (principal); G92.8 Other toxic encephalopathy; N39.0 Urinary tract infection, site not specified; D64.9 Anemia, unspecified; F20.9 Schizophrenia, unspecified; F31.9 Bipolar disorder, unspecified; F41.9 Anxiety disorder, unspecified; F79 Unspecified intellectual disabilities; K59.00 Constipation, unspecified; Z88.8 Allergy status to other drugs, medicaments and biological substances; Z85.47 Personal history of malignant neoplasm of testis; T42.6X6A Underdosing of other antiepileptic and sedative-hypnotic drugs, initial encounter
CPT/HCPCS: 36415; 80053; 80156; 80165; 80184; 80185; 80305; 80320; 80339; 81003; 82542; 82550; 84439; 84443; 85025; 85379; 90686; 90732; 93005; 93970; 99285; C9113; J0696; J1650; J1953; J7030; J7060; G0480

== ENCOUNTER 2022-01-22 14:28 | Emergency (ER) | payer MEDICARE, OTHER ==
[~2022-01-22] VITALS: Ht 180.3 cm; Wt 91.0 kg
[~2022-01-22 14:28] MED LIST changes: +ASPI-1406 PO; +CLON-457 MT; +DIPH25CA83 PO; +FAMO40TA70 MT; +FLUO20CA33 PO; +HYDR-4001 PO; +IPRA4AER IH; +MIDO5TAB4 PO; -PALI156D IM; +[UNRECOGNIZED DRUG - CODE] IJ
[2022-01-22 15:37] LABS: BASOPHILS % 0.7 % (0.0-2.0); EOSINOPHILS % 3.1 % (0.0-5.0); HEMATOCRIT. 38.6 % (42.0-52.0); HEMOGLOBIN. 13.1 g/dL (14.0-18.0); LYMPHOCYTES % 30.1 % (20.0-50.0); MEAN CORPUSCULAR HEMOGLOBIN 28.5 pg (28.0-32.0); MEAN CORPUSCULAR VOLUME 83.9 fL (80.0-94.0); MEAN PLATELET VOLUME 7.7 fl (7.4-10.4); MONOCYTES % 9.2 % (2.0-8.0); NEUTROPHILS % 56.9 % (40.0-76.0); PLATELET 169 x1000/uL (130-400); RED CELL DISTRIBUTION WIDTH 13.5 % (11.6-14.6)
[2022-01-22 16:04] LABS: CHLORIDE 102 mEq/L (98-107)
[2022-01-22 17:37] LABS: CLARITY URINE CLEAR (CLEAR); COLOR URINE YELLOW (YELLOW); KETONES URINE NEGATIVE (NEGATIVE); LEUKOCYTE ESTERASE URINE NEGATIVE (NEGATIVE); NITRITE URINE NEGATIVE (NEGATIVE); OCCULT BLOOD URINE NEGATIVE (NEGATIVE); PROTEIN URINE NEGATIVE (NEGATIVE); SPECIFIC GRAVITY URINE 1.009 (1.005-1.030); UROBILINOGEN URINE 0.2 E.U./dL (0.2-1.0)
[2022-01-23] VITALS: BP 100/56
== END 2022-01-22 21:09 | disposition home or self-care (01) ==
LOC: ER 14:32
DX: G40.909 Epilepsy, unspecified, not intractable, without status epilepticus (principal); F41.9 Anxiety disorder, unspecified; F31.9 Bipolar disorder, unspecified; F20.9 Schizophrenia, unspecified; Z90.79 Acquired absence of other genital organ(s); Z85.47 Personal history of malignant neoplasm of testis; Z88.5 Allergy status to narcotic agent; Z79.82 Long term (current) use of aspirin; Z91.041 Radiographic dye allergy status; Z87.891 Personal history of nicotine dependence
CPT/HCPCS: 36415; 76870; 80053; 80185; 81003; 85025; 93976; 99285

== ENCOUNTER 2022-02-04 18:52 | Emergency (ER) | payer MEDICARE, OTHER ==
[~2022-02-04] VITALS: Ht 182.9 cm; Wt 104.0 kg
[2022-02-05 11:00] VITALS: BP 104/65
== END 2022-02-05 16:20 ==
LOC: ER 18:52
DX: G40.909 Epilepsy, unspecified, not intractable, without status epilepticus (principal); F41.9 Anxiety disorder, unspecified; F32.A Depression, unspecified; F20.9 Schizophrenia, unspecified; Z79.82 Long term (current) use of aspirin; Z91.041 Radiographic dye allergy status; Z88.5 Allergy status to narcotic agent
CPT/HCPCS: 82962; 99285

== ENCOUNTER 2022-02-23 18:29 | Emergency (ER) | payer MEDICARE, OTHER ==
[~2022-02-23] VITALS: Ht 180.3 cm; Wt 91.0 kg
[2022-02-23] MEDS ORDERED: LEVETIRACETAM 500MG/5ML CUP PO ONE (19:15)
[2022-02-23] MEDS ORDERED: LEVETIRACETAM 500MG/5ML CUP PO NR (22:30)
[2022-02-23 22:31] LABS: BASOPHILS % 0.4 % (0.0-2.0); EOSINOPHILS % 2.2 % (0.0-5.0); HEMATOCRIT. 41.3 % (42.0-52.0); HEMOGLOBIN. 14.1 g/dL (14.0-18.0); LYMPHOCYTES % 38.4 % (20.0-50.0); MEAN CORPUSCULAR HEMOGLOBIN 28.3 pg (28.0-32.0); MEAN CORPUSCULAR VOLUME 83.2 fL (80.0-94.0); MEAN PLATELET VOLUME 8.5 fl (7.4-10.4); PLATELET 206 x1000/uL (130-400); RED BLOOD CELL COUNT 4.97 mill/uL (4.7-6.1); RED CELL DISTRIBUTION WIDTH 13.4 % (11.6-14.6)
[2022-02-23 22:51] VITALS: BP 138/77
[2022-02-23 23:05] LABS: CHLORIDE 110 mEq/L (98-107)
== END 2022-02-23 22:52 | disposition home or self-care (01) ==
LOC: ER 18:29
DX: G40.909 Epilepsy, unspecified, not intractable, without status epilepticus (principal); F84.0 Autistic disorder; F20.9 Schizophrenia, unspecified; F32.A Depression, unspecified; F41.9 Anxiety disorder, unspecified; Z91.14 Patient's other noncompliance with medication regimen; Z88.5 Allergy status to narcotic agent; Z91.041 Radiographic dye allergy status; Z79.82 Long term (current) use of aspirin
CPT/HCPCS: 36415; 80048; 85025; 99283

== ENCOUNTER 2022-02-28 07:49 | Inpatient (IN) | payer MEDICARE, OTHER ==
[~2022-02-28] VITALS: Ht 182.9 cm; Wt 124.8 kg
[2022-02-28] MEDS ORDERED: LORAZEPAM 2MG/ML CPJ IM STA (08:09)
[2022-02-28] MEDS ORDERED: LEVETIRACETAM 500MG PREMIX 100 ML IV ONE (09:15)
[2022-02-28 09:51] LABS: BASOPHILS % 0.2 % (0.0-2.0); EOSINOPHILS % 0.6 % (0.0-5.0); HEMOGLOBIN. 14.2 g/dL (14.0-18.0); LYMPHOCYTES % 20.9 % (20.0-50.0); MEAN CORPUSCULAR HEMOGLOBIN 28.1 pg (28.0-32.0); MEAN CORPUSCULAR VOLUME 83.1 fL (80.0-94.0); MEAN PLATELET VOLUME 7.9 fl (7.4-10.4); MONOCYTES % 6.9 % (2.0-8.0); NEUTROPHILS % 71.4 % (40.0-76.0); PLATELET 188 x1000/uL (130-400); RED BLOOD CELL COUNT 5.05 mill/uL (4.7-6.1); RED CELL DISTRIBUTION WIDTH 13.5 % (11.6-14.6)
[2022-02-28 09:57] LABS: CHLORIDE 110 mEq/L (98-107)
[2022-02-28 10:04] LABS: ETHANOL BLOOD < 10 mg/dL
[2022-02-28 10:20] LABS: CLARITY URINE CLEAR (CLEAR); COLOR URINE YELLOW (YELLOW); KETONES URINE NEGATIVE (NEGATIVE); LEUKOCYTE ESTERASE URINE NEGATIVE (NEGATIVE); NITRITE URINE NEGATIVE (NEGATIVE); OCCULT BLOOD URINE NEGATIVE (NEGATIVE); PROTEIN URINE NEGATIVE (NEGATIVE); SPECIFIC GRAVITY URINE 1.004 (1.005-1.030); UROBILINOGEN URINE 0.2 E.U./dL (0.2-1.0)
[2022-02-28] MEDS ORDERED: KEPP500 PO (10:30)
[2022-02-28 11:30] LABS: *AMPHETAMINES SCREEN URINE NEGATIVE (NEGATIVE); *BARBITURATES SCREEN URINE NEGATIVE (NEGATIVE); *BENZODIAZEPINES SCREEN URINE NEGATIVE (NEGATIVE); *COCAINE SCREEN URINE NEGATIVE (NEGATIVE); CANNABINOID URINE SCREEN NEGATIVE (NEGATIVE); METHADONE URINE SCREEN NEGATIVE (NEGATIVE); OPIATES URINE SCREEN NEGATIVE (NEGATIVE); PHENCYCLIDINE URINE SCREEN NEGATIVE (NEGATIVE)
[2022-02-28] MEDS ORDERED: CLONIDINE 0.1MG TABLET PO PRN (13:45)
[2022-02-28] MEDS ORDERED: DOCUSATE SODIUM 100MG CAPSULE PO PRN (13:45)
[2022-02-28] MEDS ORDERED: NA PHOS,M-B/NA PHOS,DI-BA ENEMA 118ML PR PRN (13:45)
[2022-02-28] MEDS ORDERED: ACETAMINOPHEN 325MG TABLET PO PRN ×2 (13:45)
[2022-02-28] MEDS ORDERED: GUAIFENESIN 200MG/10ML SUGAR FREE UDC PO PRN (13:45)
[2022-02-28] MEDS ORDERED: NITROGLYCERIN 0.4MG TABLET SL SL PRN (13:45)
[2022-02-28] MEDS ORDERED: IPRATROPIUM/ALBUTEROL 0.5-3(2.5)MG/3ML NEB NEB PRN (13:45)
[2022-02-28] MEDS ORDERED: MAGNESIUM/ALUMINUM HYDROXIDE/SIMETHICONE 30ML UDC PO PRN (13:45)
[2022-02-28] MEDS ORDERED: ONDANSETRON HCL 4MG/2ML INJ IV PRN (13:45)
[2022-02-28] MEDS ORDERED: ENOXAPARIN 40MG/0.4ML SYR SUBCUT SCH (13:45)
[2022-02-28] MEDS: SODIUM CHLORIDE 0.9% 1,000 ML IV SCH (14:43)
[2022-02-28] MEDS: FAMOTIDINE 20MG TABLET PO SCH ×2 (14:43→20:51)
[2022-02-28] MEDS: MIDODRINE HCL 5MG TABLET PO SCH ×2 (14:44→18:49)
[2022-02-28 15:10] LABS: T4 FREE 0.92 ng/dL (0.76-1.46); VITAMIN B12 SERUM 498 pg/mL (211-911)
[2022-02-28 15:19] LABS: TOTAL IRON BINDING CAPACITY 369 ug/dL (250-450)
[2022-02-28 15:22] LABS: FOLIC ACID (FOLATE) SERUM > 20.00 ng/mL (>5.38)
[2022-02-28 16:45] LABS: CREATINE KINASE 151 IU/L (39-308); CREATINE KINASE MB FRACTION < 1.0 ng/mL (0.5-3.6)
[2022-02-28] MEDS ORDERED: PHENYTOIN SODIUM 1,000 MG in SODIUM CHLORIDE 0.9% 100 ML IV NR (17:00)
[2022-02-28 18:00] VITALS: BP 99/54
[2022-02-28] MEDS: PHENYTOIN SODIUM 100MG/2ML VIAL IV SCH (18:00)
[2022-02-28] MEDS: ENOXAPARIN 30MG/0.3ML SYR SUBCUT SCH (18:48)
[2022-02-28 20:00] VITALS: BP 112/73
[2022-02-28] MEDS: LEVETIRACETAM 500MG TABLET PO SCH (20:51)
[2022-02-28 21:57] VITALS: BP 112/73
[2022-03-01 00:03] VITALS: BP 136/82
[2022-03-01 00:11] LABS: CREATINE KINASE 96 IU/L (39-308); CREATINE KINASE MB FRACTION < 1.0 ng/mL (0.5-3.6)
[2022-03-01] MEDS: PHENYTOIN SODIUM 100MG/2ML VIAL IV SCH ×3 (01:50→19:28)
[2022-03-01] MEDS: ZOLPIDEM TARTRATE 5MG TABLET PO PRN ×2 (01:54→21:38)
[2022-03-01 04:00] VITALS: BP 96/50
[2022-03-01] MEDS: ENOXAPARIN 30MG/0.3ML SYR SUBCUT SCH ×2 (05:22→19:28)
[2022-03-01 08:00] VITALS: BP 96/36
[2022-03-01 08:39] LABS: BASOPHILS % 0.4 % (0.0-2.0); EOSINOPHILS % 1.5 % (0.0-5.0); HEMATOCRIT. 40.1 % (42.0-52.0); HEMOGLOBIN. 13.6 g/dL (14.0-18.0); LYMPHOCYTES % 28.5 % (20.0-50.0); MEAN CORPUSCULAR HEMOGLOBIN 28.2 pg (28.0-32.0); MEAN PLATELET VOLUME 7.9 fl (7.4-10.4); MONOCYTES % 8.5 % (2.0-8.0); NEUTROPHILS % 61.1 % (40.0-76.0); PLATELET 189 x1000/uL (130-400); RED BLOOD CELL COUNT 4.83 mill/uL (4.7-6.1); RED CELL DISTRIBUTION WIDTH 13.3 % (11.6-14.6)
[2022-03-01 09:03] LABS: CHLORIDE 108 mEq/L (98-107)
[2022-03-01 09:15] LABS: PHOSPHORUS 2.4 mg/dL (2.5-4.9)
[2022-03-01] MEDS: LEVETIRACETAM 500MG TABLET PO SCH ×2 (10:30→21:26)
[2022-03-01] MEDS: SODIUM CHLORIDE 0.9% 1,000 ML IV SCH ×2 (10:30→21:26)
[2022-03-01] MEDS: FAMOTIDINE 20MG TABLET PO SCH ×2 (10:31→21:26)
[2022-03-01] MEDS: MIDODRINE HCL 5MG TABLET PO SCH ×2 (10:36→17:29)
[2022-03-01 12:01] VITALS: BP 113/61
[2022-03-01 16:00] VITALS: BP 101/54
[2022-03-01] MEDS: LORAZEPAM 2MG/ML CPJ IV PRN (17:26)
[2022-03-01 20:00] VITALS: BP 109/74
[2022-03-01] MEDS: LAMOTRIGINE 100MG TABLET PO SCH (21:26)
[2022-03-02] VITALS: BP 105/83
[2022-03-02] MEDS: LORAZEPAM 2MG/ML CPJ IV PRN ×2 (00:04→20:38)
[2022-03-02] MEDS: LACOSAMIDE 100 MG TABLET PO SCH ×3 (00:20→17:15)
[2022-03-02] MEDS: PHENYTOIN SODIUM 100MG/2ML VIAL IV SCH ×3 (02:14→17:15)
[2022-03-02 04:00] VITALS: BP 121/48
[2022-03-02] MEDS: ENOXAPARIN 30MG/0.3ML SYR SUBCUT SCH ×2 (05:01→17:16)
[2022-03-02] MEDS: SODIUM CHLORIDE 0.9% 1,000 ML IV SCH ×2 (05:01→18:45)
[2022-03-02 08:00] VITALS: BP 97/59
[2022-03-02] MEDS: LAMOTRIGINE 100MG TABLET PO SCH ×2 (08:44→20:39)
[2022-03-02] MEDS: LEVETIRACETAM 500MG TABLET PO SCH ×2 (08:44→20:38)
[2022-03-02] MEDS: FAMOTIDINE 20MG TABLET PO SCH ×2 (08:46→20:39)
[2022-03-02] MEDS: MIDODRINE HCL 5MG TABLET PO SCH ×3 (08:50→16:53)
[2022-03-02 12:00] VITALS: BP 105/71
[2022-03-02 16:00] VITALS: BP 123/81
[2022-03-02 20:00] VITALS: BP 117/79
[2022-03-03] VITALS: BP 113/70
[2022-03-03] MEDS: PHENYTOIN SODIUM 100MG/2ML VIAL IV SCH ×3 (02:02→17:22)
[2022-03-03 04:00] VITALS: BP 105/55
[2022-03-03] MEDS: ENOXAPARIN 30MG/0.3ML SYR SUBCUT SCH ×2 (05:40→17:22)
[2022-03-03 08:00] VITALS: BP 115/71
[2022-03-03] MEDS: LAMOTRIGINE 100MG TABLET PO SCH ×2 (08:26→22:03)
[2022-03-03] MEDS: LEVETIRACETAM 500MG TABLET PO SCH ×2 (08:26→22:03)
[2022-03-03] MEDS: LACOSAMIDE 100 MG TABLET PO SCH ×2 (08:26→17:18)
[2022-03-03] MEDS: FAMOTIDINE 20MG TABLET PO SCH ×2 (08:26→22:03)
[2022-03-03] MEDS: MIDODRINE HCL 5MG TABLET PO SCH ×3 (08:26→17:17)
[2022-03-03] MEDS: SODIUM CHLORIDE 0.9% 1,000 ML IV SCH ×2 (08:40→22:04)
[2022-03-03 12:00] VITALS: BP 96/55
[2022-03-03] MEDS: LORAZEPAM 2MG/ML CPJ IV PRN ×2 (14:11→20:18)
[2022-03-03 16:00] VITALS: BP 97/55
[2022-03-03 20:00] VITALS: BP 101/51
[2022-03-04] VITALS: BP 99/44
[2022-03-04] MEDS: PHENYTOIN SODIUM 100MG/2ML VIAL IV SCH ×3 (02:00→17:18)
[2022-03-04 04:00] VITALS: BP 110/64
[2022-03-04] MEDS: ENOXAPARIN 30MG/0.3ML SYR SUBCUT SCH ×2 (06:00→17:19)
[2022-03-04 08:00] VITALS: BP 106/61
[2022-03-04] MEDS: LAMOTRIGINE 100MG TABLET PO SCH ×2 (08:59→21:13)
[2022-03-04] MEDS: FAMOTIDINE 20MG TABLET PO SCH ×2 (08:59→21:16)
[2022-03-04] MEDS: LACOSAMIDE 100 MG TABLET PO SCH ×2 (08:59→17:18)
[2022-03-04] MEDS: MIDODRINE HCL 5MG TABLET PO SCH ×3 (08:59→17:19)
[2022-03-04] MEDS: LEVETIRACETAM 500MG TABLET PO SCH ×2 (08:59→21:13)
[2022-03-04 12:00] VITALS: BP 110/73
[2022-03-04] MEDS: SODIUM CHLORIDE 0.9% 1,000 ML IV SCH (13:13)
[2022-03-04] MEDS: LORAZEPAM 2MG/ML CPJ IV PRN (13:13)
[2022-03-04 16:00] VITALS: BP 116/55
[2022-03-04 20:00] VITALS: BP 92/54
[2022-03-04] MEDS: ZOLPIDEM TARTRATE 5MG TABLET PO PRN (21:16)
[2022-03-05] VITALS: BP 93/49
[2022-03-05] MEDS: SODIUM CHLORIDE 0.9% 1,000 ML IV SCH ×2 (00:40→13:39)
[2022-03-05 04:00] VITALS: BP 95/50
[2022-03-05] MEDS: ENOXAPARIN 30MG/0.3ML SYR SUBCUT SCH ×2 (05:39→17:50)
[2022-03-05] MEDS: PHENYTOIN SODIUM EXTENDED 100MG CAPSULE PO SCH ×3 (05:40→21:09)
[2022-03-05 08:00] VITALS: BP 95/55
[2022-03-05] MEDS: LEVETIRACETAM 500MG TABLET PO SCH ×2 (08:42→21:09)
[2022-03-05] MEDS: LACOSAMIDE 100 MG TABLET PO SCH ×2 (08:42→17:50)
[2022-03-05] MEDS: MIDODRINE HCL 5MG TABLET PO SCH ×3 (08:43→17:50)
[2022-03-05] MEDS: LAMOTRIGINE 100MG TABLET PO SCH ×2 (08:43→21:09)
[2022-03-05] MEDS: FAMOTIDINE 20MG TABLET PO SCH ×2 (08:43→21:09)
[2022-03-05 12:00] VITALS: BP 84/47
[2022-03-05] MEDS ORDERED: PHEN100C4 MT (12:24)
[2022-03-05] MEDS ORDERED: LAM1 PO (12:24)
[2022-03-05] MEDS ORDERED: KEPP500 PO (12:24)
[2022-03-05] MEDS ORDERED: LACO100T2 PO (12:24)
[2022-03-05] MEDS ORDERED: MIDO5TAB4 PO (12:24)
[2022-03-05 16:00] VITALS: BP 90/40
[2022-03-05 20:00] VITALS: BP 113/66
[2022-03-06] VITALS: BP 101/49
[2022-03-06] MEDS: SODIUM CHLORIDE 0.9% 1,000 ML IV SCH ×2 (03:20→17:23)
[2022-03-06 04:00] VITALS: BP 109/49
[2022-03-06] MEDS: PHENYTOIN SODIUM EXTENDED 100MG CAPSULE PO SCH ×3 (07:12→21:49)
[2022-03-06] MEDS: ENOXAPARIN 30MG/0.3ML SYR SUBCUT SCH ×2 (07:12→17:22)
[2022-03-06 08:00] VITALS: BP 96/48
[2022-03-06] MEDS: LAMOTRIGINE 100MG TABLET PO SCH ×2 (08:46→21:49)
[2022-03-06] MEDS: LACOSAMIDE 100 MG TABLET PO SCH ×2 (08:46→17:22)
[2022-03-06] MEDS: FAMOTIDINE 20MG TABLET PO SCH ×2 (08:46→21:50)
[2022-03-06] MEDS: LEVETIRACETAM 500MG TABLET PO SCH ×2 (08:46→21:50)
[2022-03-06] MEDS: MIDODRINE HCL 5MG TABLET PO SCH ×3 (08:47→17:22)
[2022-03-06 12:00] VITALS: BP 100/52
[2022-03-06 16:00] VITALS: BP 104/67
[2022-03-06 20:00] VITALS: BP 96/48
[2022-03-07] VITALS (7 sets, daily range): BP systolic 90–112; BP diastolic 25–90
[2022-03-07] MEDS: SODIUM CHLORIDE 0.9% 1,000 ML IV SCH ×2 (06:00→19:20)
[2022-03-07] MEDS: PHENYTOIN SODIUM EXTENDED 100MG CAPSULE PO SCH ×3 (07:05→21:06)
[2022-03-07] MEDS: ENOXAPARIN 30MG/0.3ML SYR SUBCUT SCH ×2 (07:06→17:30)
[2022-03-07] MEDS: LEVETIRACETAM 500MG TABLET PO SCH ×2 (09:06→21:07)
[2022-03-07] MEDS: LACOSAMIDE 100 MG TABLET PO SCH ×2 (09:06→17:29)
[2022-03-07] MEDS: MIDODRINE HCL 5MG TABLET PO SCH ×3 (09:06→17:30)
[2022-03-07] MEDS: LAMOTRIGINE 100MG TABLET PO SCH ×2 (09:06→21:07)
[2022-03-07] MEDS: FAMOTIDINE 20MG TABLET PO SCH ×2 (09:06→21:08)
[2022-03-08] VITALS (7 sets, daily range): BP systolic 94–111; BP diastolic 52–67
[2022-03-08] MEDS: LACOSAMIDE 100 MG TABLET PO SCH ×3 (01:46→17:23)
[2022-03-08] MEDS: PHENYTOIN SODIUM EXTENDED 100MG CAPSULE PO SCH ×3 (06:46→21:10)
[2022-03-08] MEDS: ENOXAPARIN 30MG/0.3ML SYR SUBCUT SCH ×2 (06:47→17:24)
[2022-03-08] MEDS: LEVETIRACETAM 500MG TABLET PO SCH ×2 (09:11→21:10)
[2022-03-08] MEDS: LAMOTRIGINE 100MG TABLET PO SCH ×2 (09:11→21:10)
[2022-03-08] MEDS: FAMOTIDINE 20MG TABLET PO SCH ×2 (09:11→21:10)
[2022-03-08] MEDS: MIDODRINE HCL 5MG TABLET PO SCH ×3 (09:11→17:23)
[2022-03-08] MEDS: SODIUM CHLORIDE 0.9% 1,000 ML IV SCH (21:11)
[2022-03-09] VITALS (7 sets, daily range): BP systolic 91–115; BP diastolic 47–62
[2022-03-09] MEDS: ENOXAPARIN 30MG/0.3ML SYR SUBCUT SCH ×2 (05:01→18:00)
[2022-03-09] MEDS: PHENYTOIN SODIUM EXTENDED 100MG CAPSULE PO SCH ×2 (05:01→13:02)
[2022-03-09 06:42] LABS: BASOPHILS % 0.2 % (0.0-2.0); HEMATOCRIT. 41.1 % (42.0-52.0); HEMOGLOBIN. 14.1 g/dL (14.0-18.0); LYMPHOCYTES % 16.3 % (20.0-50.0); MEAN CORPUSCULAR HEMOGLOBIN 28.5 pg (28.0-32.0); MEAN CORPUSCULAR VOLUME 83.3 fL (80.0-94.0); MEAN PLATELET VOLUME 8.4 fl (7.4-10.4); MONOCYTES % 10.2 % (2.0-8.0); NEUTROPHILS % 72.3 % (40.0-76.0); PLATELET 206 x1000/uL (130-400); RED BLOOD CELL COUNT 4.93 mill/uL (4.7-6.1); RED CELL DISTRIBUTION WIDTH 13.6 % (11.6-14.6)
[2022-03-09 07:06] LABS: CHLORIDE 104 mEq/L (98-107)
[2022-03-09] MEDS: LACOSAMIDE 100 MG TABLET PO SCH ×2 (08:37→17:57)
[2022-03-09] MEDS: MIDODRINE HCL 5MG TABLET PO SCH ×3 (08:37→17:57)
[2022-03-09] MEDS: LEVETIRACETAM 500MG TABLET PO SCH (08:37)
[2022-03-09] MEDS: FAMOTIDINE 20MG TABLET PO SCH (08:38)
[2022-03-09] MEDS: LAMOTRIGINE 100MG TABLET PO SCH (08:38)
[2022-03-09] MEDS: SODIUM CHLORIDE 0.9% 1,000 ML IV SCH (12:44)
== END 2022-03-09 18:53 | disposition home or self-care (01) | DRG 100 ==
LOC: ER 07:49 → 7WST 12:05 → SUPCPDRO 13:41
PROVIDERS: ADMIT Internal Medicine; ATTEND Internal Medicine
PROC: 4A00X4Z Measurement of Central Nervous Electrical Activity, External Approach (ICD-10-PCS; principal; 2022-03-08)
DX: G40.909 Epilepsy, unspecified, not intractable, without status epilepticus (principal); G92.8 Other toxic encephalopathy; F84.0 Autistic disorder; I95.1 Orthostatic hypotension; F79 Unspecified intellectual disabilities; F31.9 Bipolar disorder, unspecified; F20.9 Schizophrenia, unspecified; Z85.47 Personal history of malignant neoplasm of testis; Z88.8 Allergy status to other drugs, medicaments and biological substances
CPT/HCPCS: 36415; 80048; 80053; 80185; 80305; 80320; 80339; 81003; 82550; 82553; 82607; 82746; 82962; 83540; 83550; 83735; 84100; 84439; 84443; 84484; 85025; 93970; 95816; 97162; 97166; 99291; C1893; J1165; J1650; J1953; J2060; J7050; G0480

== ENCOUNTER 2022-05-24 21:31 | Inpatient (IN) | payer MEDICARE, MEDICAID ==
[~2022-05-24] VITALS: Ht 188 cm; Wt 114.2 kg
[~2022-05-24 21:31] MED LIST changes: -CLON-457 MT; -CLON0.5T4 PO; -DIPH25CA83 PO; -FAMO40TA70 MT; -FLUO20CA33 PO; -HYDR-4001 PO; -IPRA4AER IH; -LACO100T2 PO; +LAM1 PO; -LAM25 PO; +PHEN100C4 MT; -QUET50TA PO; -RISP1 PO; -TH25 PO; -[UNRECOGNIZED DRUG - CODE] IJ
[2022-05-24 23:01] LABS: BASOPHILS % 0.4 % (0.0-2.0); EOSINOPHILS % 3.4 % (0.0-5.0); HEMATOCRIT. 38.1 % (42.0-52.0); HEMOGLOBIN. 12.5 g/dL (14.0-18.0); LYMPHOCYTES % 19.4 % (20.0-50.0); MEAN CORPUSCULAR HEMOGLOBIN 27.9 pg (28.0-32.0); MEAN CORPUSCULAR VOLUME 85.2 fL (80.0-94.0); MEAN PLATELET VOLUME 7.8 fl (7.4-10.4); MONOCYTES % 9.3 % (2.0-8.0); NEUTROPHILS % 67.5 % (40.0-76.0); PLATELET 216 x1000/uL (130-400); RED BLOOD CELL COUNT 4.48 mill/uL (4.7-6.1); RED CELL DISTRIBUTION WIDTH 15.1 % (11.6-14.6)
[2022-05-25 01:15] LABS: CHLORIDE 110 mEq/L (98-107); ETHANOL BLOOD < 10 mg/dL
[2022-05-25] MEDS ORDERED: ASPIRIN 325MG TABLET PO ONE (01:45)
[2022-05-25] MEDS ORDERED: LEVETIRACETAM 500MG PREMIX 100 ML IV ONE (02:00)
[2022-05-25 04:26] LABS: CLARITY URINE CLEAR (CLEAR); COLOR URINE YELLOW (YELLOW); KETONES URINE NEGATIVE (NEGATIVE); LEUKOCYTE ESTERASE URINE NEGATIVE (NEGATIVE); NITRITE URINE NEGATIVE (NEGATIVE); OCCULT BLOOD URINE NEGATIVE (NEGATIVE); PH URINE 6.5 (4.5-8.0); PROTEIN URINE NEGATIVE (NEGATIVE); SPECIFIC GRAVITY URINE 1.019 (1.005-1.030)
[2022-05-25 05:09] LABS: *AMPHETAMINES SCREEN URINE NEGATIVE (NEGATIVE); *BARBITURATES SCREEN URINE NEGATIVE (NEGATIVE); *BENZODIAZEPINES SCREEN URINE NEGATIVE (NEGATIVE); *COCAINE SCREEN URINE NEGATIVE (NEGATIVE); CANNABINOID URINE SCREEN NEGATIVE (NEGATIVE); METHADONE URINE SCREEN NEGATIVE (NEGATIVE); OPIATES URINE SCREEN NEGATIVE (NEGATIVE); PHENCYCLIDINE URINE SCREEN NEGATIVE (NEGATIVE)
[2022-05-25 06:54] VITALS: BP 117/76
[2022-05-25] MEDS ORDERED: ACETAMINOPHEN 325MG TABLET PO PRN ×2 (07:30)
[2022-05-25] MEDS ORDERED: GUAIFENESIN 200MG/10ML SUGAR FREE UDC PO PRN (07:30)
[2022-05-25] MEDS ORDERED: DOCUSATE SODIUM 100MG CAPSULE PO PRN (07:30)
[2022-05-25] MEDS ORDERED: LORAZEPAM 2MG/ML CPJ IV PRN (07:30)
[2022-05-25] MEDS ORDERED: IPRATROPIUM/ALBUTEROL 0.5-3(2.5)MG/3ML NEB NEB PRN (07:30)
[2022-05-25] MEDS ORDERED: ZOLPIDEM TARTRATE 5MG TABLET PO PRN (07:30)
[2022-05-25] MEDS ORDERED: MAGNESIUM/ALUMINUM HYDROXIDE/SIMETHICONE 30ML UDC PO PRN (07:30)
[2022-05-25] MEDS ORDERED: KETOROLAC 15MG/ML VIAL IV PRN (07:30)
[2022-05-25] MEDS ORDERED: CLONIDINE 0.1MG TABLET PO PRN (07:30)
[2022-05-25] MEDS ORDERED: NITROGLYCERIN 0.4MG TABLET SL SL PRN (07:30)
[2022-05-25] MEDS ORDERED: ONDANSETRON HCL 4MG/2ML INJ IV PRN (07:30)
[2022-05-25] MEDS ORDERED: ENOXAPARIN 30MG/0.3ML SYR SUBCUT SCH (08:00)
[2022-05-25] MEDS ORDERED: LEVETIRACETAM 500MG TABLET PO SCH (09:00)
[2022-05-25] MEDS ORDERED: FAMOTIDINE 20MG TABLET PO SCH (09:00)
[2022-05-25] MEDS ORDERED: LEVETIRACETAM 500MG PREMIX 100 ML IV SCH (09:00)
[2022-05-25] MEDS ORDERED: ASPIRIN 81MG EC TABLET PO SCH (09:00)
[2022-05-25] MEDS ORDERED: PHENYTOIN SODIUM 100MG/2ML VIAL IV SCH (10:00)
[2022-05-25 10:24] LABS: T4 FREE 1.06 ng/dL (0.76-1.46)
[2022-05-25 11:26] LABS: FOLIC ACID (FOLATE) SERUM 11.4 ng/mL (>5.38)
== END 2022-05-25 12:00 | disposition left against medical advice (07) | DRG 948 ==
LOC: ER 21:31 → MICUSO 05-25 01:39 → EDBEDREQ 05-25 01:55 → EDBEDREQTM 05-25 01:55
PROVIDERS: ADMIT Internal Medicine; ATTEND Internal Medicine
DX: R53.1 Weakness (principal); F20.9 Schizophrenia, unspecified; G40.909 Epilepsy, unspecified, not intractable, without status epilepticus; Z53.29 Procedure and treatment not carried out because of patient's decision for other reasons; Z86.73 Personal history of transient ischemic attack (TIA), and cerebral infarction without residual deficits; Z79.899 Other long term (current) drug therapy; Z88.8 Allergy status to other drugs, medicaments and biological substances
CPT/HCPCS: 36415; 71045; 80053; 80061; 80185; 80305; 80320; 81003; 82607; 82746; 83540; 83550; 84439; 84443; 84484; 85025; 93005; 93970; 99291; C1893; J1165; J1650; J1953; G0480

== ENCOUNTER 2022-05-25 12:05 | Emergency (ER) | payer MEDICARE, MEDICAID ==
[~2022-05-25] VITALS: Ht 177.8 cm; Wt 91.0 kg
[2022-05-25 12:07] VITALS: BP 124/79
== END 2022-05-25 12:10 | disposition left against medical advice (07) ==
LOC: ER 12:05
DX: Z53.21 Procedure and treatment not carried out due to patient leaving prior to being seen by health care provider (principal)
CPT/HCPCS: 99281

== ENCOUNTER 2022-05-25 13:12 | Emergency (ER) | payer MEDICARE, MEDICAID ==
[~2022-05-25] VITALS: Ht 177.8 cm; Wt 95.0 kg
[2022-05-25] MEDS ORDERED: LORAZEPAM 2MG/ML CPJ IV ONE (13:45)
[2022-05-25] MEDS ORDERED: HALOPERIDOL LACTATE 5MG/ML VIAL IM ONE (13:45)
[2022-05-25] MEDS ORDERED: LORAZEPAM 2MG/ML CPJ IM ONE (14:30)
[2022-05-25] MEDS ORDERED: PHENYTOIN SODIUM 500 MG in SODIUM CHLORIDE 0.9% 50 ML IV NR (16:30)
[2022-05-25] MEDS ORDERED: LORAZEPAM 2MG/ML CPJ IM NR (16:45)
[2022-05-25] MEDS ORDERED: CEFTRIAXONE 1,000 MG in DEXTROSE 5% WATER 50 ML IV NR (17:00)
[2022-05-25 17:04] LABS: BASOPHILS % 0.7 % (0.0-2.0); EOSINOPHILS % 1.6 % (0.0-5.0); HEMATOCRIT. 39.2 % (42.0-52.0); HEMOGLOBIN. 12.9 g/dL (14.0-18.0); LYMPHOCYTES % 16.5 % (20.0-50.0); MEAN CORPUSCULAR HEMOGLOBIN 27.8 pg (28.0-32.0); MEAN CORPUSCULAR VOLUME 84.7 fL (80.0-94.0); MEAN PLATELET VOLUME 7.9 fl (7.4-10.4); MONOCYTES % 11.6 % (2.0-8.0); NEUTROPHILS % 69.6 % (40.0-76.0); PLATELET 208 x1000/uL (130-400); RED BLOOD CELL COUNT 4.63 mill/uL (4.7-6.1)
[2022-05-25 17:11] LABS: CHLORIDE 109 mEq/L (98-107)
[2022-05-25 17:19] LABS: ETHANOL BLOOD < 10 mg/dL; PHOSPHORUS 2.7 mg/dL (2.5-4.9)
[2022-05-25 17:50] VITALS: BP 122/81
[2022-05-25] MEDS ORDERED: POTASSIUM PHOS,M-BASIC-D-BASIC 10 MMOL in DEXT 5% WATER 246.6667 ML IV NR (18:00)
[2022-05-26] MEDS ORDERED: CEFTRIAXONE 1,000 MG in DEXTROSE 5% WATER 50 ML IV SCH (09:00)
== END 2022-05-25 19:52 | disposition left against medical advice (07) ==
LOC: ER 13:12 → CANBEDREQ 05-26 08:06
DX: I63.9 Cerebral infarction, unspecified (principal); F20.9 Schizophrenia, unspecified; G40.909 Epilepsy, unspecified, not intractable, without status epilepticus; Z86.73 Personal history of transient ischemic attack (TIA), and cerebral infarction without residual deficits; Z78.1 Physical restraint status; Z91.041 Radiographic dye allergy status
CPT/HCPCS: 36415; 80053; 80320; 82962; 83735; 84100; 85025; 96372; 99285; J0696; J1165; J1630; J2060; J7060; J3490; G0480

== ENCOUNTER 2022-06-02 15:09 | Emergency (ER) | payer MEDICARE, MEDICAID ==
[~2022-06-02] VITALS: Ht 182.9 cm; Wt 96.0 kg
[2022-06-02 15:33] LABS: BASOPHILS % 0.5 % (0.0-2.0); EOSINOPHILS % 2.9 % (0.0-5.0); HEMATOCRIT. 38.8 % (42.0-52.0); LYMPHOCYTES % 27.5 % (20.0-50.0); MEAN CORPUSCULAR HEMOGLOBIN 28.3 pg (28.0-32.0); MEAN CORPUSCULAR VOLUME 84.4 fL (80.0-94.0); MEAN PLATELET VOLUME 7.8 fl (7.4-10.4); NEUTROPHILS % 61.1 % (40.0-76.0); PLATELET 237 x1000/uL (130-400); RED CELL DISTRIBUTION WIDTH 15.2 % (11.6-14.6)
[2022-06-02 15:43] LABS: CHLORIDE 105 mEq/L (98-107)
[2022-06-02 15:55] LABS: ETHANOL BLOOD < 10 mg/dL
[2022-06-02 16:10] VITALS: BP 108/69
[2022-06-02] MEDS ORDERED: LEVETIRACETAM 500MG TABLET PO ONE (17:45)
[2022-06-02 18:24] LABS: CLARITY URINE CLEAR (CLEAR); COLOR URINE YELLOW (YELLOW); KETONES URINE NEGATIVE (NEGATIVE); LEUKOCYTE ESTERASE URINE TRACE (NEGATIVE); NITRITE URINE NEGATIVE (NEGATIVE); OCCULT BLOOD URINE NEGATIVE (NEGATIVE); PROTEIN URINE NEGATIVE (NEGATIVE); SPECIFIC GRAVITY URINE 1.008 (1.005-1.030); UROBILINOGEN URINE 0.2 E.U./dL (0.2-1.0)
[2022-06-02] MEDS ORDERED: IBUPROFEN 600MG TABLET PO ONE (18:30)
[2022-06-02 18:43] LABS: *AMPHETAMINES SCREEN URINE NEGATIVE (NEGATIVE); *BARBITURATES SCREEN URINE NEGATIVE (NEGATIVE); *BENZODIAZEPINES SCREEN URINE NEGATIVE (NEGATIVE); *COCAINE SCREEN URINE NEGATIVE (NEGATIVE); CANNABINOID URINE SCREEN NEGATIVE (NEGATIVE); METHADONE URINE SCREEN NEGATIVE (NEGATIVE); OPIATES URINE SCREEN NEGATIVE (NEGATIVE); PHENCYCLIDINE URINE SCREEN NEGATIVE (NEGATIVE)
== END 2022-06-02 19:10 | disposition home or self-care (01) ==
LOC: ER 15:09
DX: G40.909 Epilepsy, unspecified, not intractable, without status epilepticus (principal); F20.9 Schizophrenia, unspecified; F12.10 Cannabis abuse, uncomplicated; Z86.73 Personal history of transient ischemic attack (TIA), and cerebral infarction without residual deficits; Z91.041 Radiographic dye allergy status
CPT/HCPCS: 36415; 80053; 80185; 80305; 80320; 81003; 85025; 99284; G0480

== ENCOUNTER 2022-06-03 20:51 | Emergency (ER) | payer MEDICARE, MEDICAID ==
[~2022-06-03] VITALS: Ht 182.9 cm; Wt 100.0 kg
[2022-06-03] MEDS ORDERED: SODIUM CHLORIDE 0.9% 1,000 ML IV ONE (21:30)
[2022-06-03] MEDS ORDERED: LEVETIRACETAM 500MG PREMIX 100 ML IV ONE ×2 (21:30→23:00)
[2022-06-03] MEDS ORDERED: LEVETIRACETAM 500MG TABLET PO ONE (22:00)
[2022-06-04] MEDS ORDERED: DIPHENHYDRAMINE 25MG CAPSULE PO ONE (02:00)
[2022-06-04 06:00] VITALS: BP 137/83
== END 2022-06-04 08:12 | disposition home or self-care (01) ==
LOC: ER 20:51
DX: G40.909 Epilepsy, unspecified, not intractable, without status epilepticus (principal); F79 Unspecified intellectual disabilities; F12.10 Cannabis abuse, uncomplicated; Z86.73 Personal history of transient ischemic attack (TIA), and cerebral infarction without residual deficits; Z91.041 Radiographic dye allergy status
CPT/HCPCS: 93005; 96365; 99284; J1953; J7030; Q0163

== ENCOUNTER 2022-06-09 13:03 | Emergency (ER) | payer MEDICARE, MEDICAID ==
[~2022-06-09] VITALS: Ht 180.3 cm; Wt 100.0 kg
[2022-06-09 13:09] VITALS: BP 119/74
[2022-06-09] MEDS ORDERED: SODIUM CHLORIDE 0.9% 1,000 ML IV ONE (16:00)
[2022-06-09] MEDS ORDERED: LEVETIRACETAM 500MG PREMIX 100 ML IV ONE (16:00)
[2022-06-09 17:15] LABS: CHLORIDE 104 mEq/L (98-107)
[2022-06-09 17:20] LABS: BASOPHILS % 0.3 % (0.0-2.0); EOSINOPHILS % 0.6 % (0.0-5.0); HEMOGLOBIN. 13.4 g/dL (14.0-18.0); LYMPHOCYTES % 14.5 % (20.0-50.0); MEAN CORPUSCULAR HEMOGLOBIN 28.1 pg (28.0-32.0); MEAN PLATELET VOLUME 7.8 fl (7.4-10.4); MONOCYTES % 8.8 % (2.0-8.0); NEUTROPHILS % 75.8 % (40.0-76.0); PLATELET 343 x1000/uL (130-400); RED BLOOD CELL COUNT 4.76 mill/uL (4.7-6.1); RED CELL DISTRIBUTION WIDTH 15.3 % (11.6-14.6)
[2022-06-09 17:21] LABS: ETHANOL BLOOD < 10 mg/dL
[2022-06-09 19:21] LABS: PARTIAL THROMBOPLASTIN TIME 27.3 sec (23.4-31.0); PROTHROMBIN TIME 10.9 sec (9.6-11.0)
== END 2022-06-09 21:47 | disposition left against medical advice (07) ==
LOC: ER 13:26
DX: G40.909 Epilepsy, unspecified, not intractable, without status epilepticus (principal); F17.210 Nicotine dependence, cigarettes, uncomplicated; R06.02 Shortness of breath; F12.10 Cannabis abuse, uncomplicated; Z86.73 Personal history of transient ischemic attack (TIA), and cerebral infarction without residual deficits; Z79.82 Long term (current) use of aspirin; Z91.041 Radiographic dye allergy status
CPT/HCPCS: 36415; 71045; 80053; 80185; 80320; 83880; 84484; 85025; 85379; 85610; 85730; 93005; 99285; J7030; G0480

== ENCOUNTER 2022-06-09 21:34 | Emergency (ER) | payer MEDICARE, MEDICAID ==
[~2022-06-09] VITALS: Ht 177.8 cm; Wt 100.0 kg
[2022-06-09] MEDS ORDERED: LEVETIRACETAM 1,000 MG in SODIUM CHLORIDE 0.9% 100 ML IV SCH (23:45)
[2022-06-09] MEDS ORDERED: LEVETIRACETAM 1000MG PREMIX 100 ML IV NR (23:45)
[2022-06-09 23:57] LABS: BASOPHILS % 0.4 % (0.0-2.0); EOSINOPHILS % 1.2 % (0.0-5.0); HEMATOCRIT. 40.5 % (42.0-52.0); HEMOGLOBIN. 13.3 g/dL (14.0-18.0); LYMPHOCYTES % 19.1 % (20.0-50.0); MEAN CORPUSCULAR HEMOGLOBIN 27.5 pg (28.0-32.0); MEAN CORPUSCULAR VOLUME 83.8 fL (80.0-94.0); MONOCYTES % 9.6 % (2.0-8.0); NEUTROPHILS % 69.7 % (40.0-76.0); PLATELET 282 x1000/uL (130-400); RED BLOOD CELL COUNT 4.83 mill/uL (4.7-6.1); RED CELL DISTRIBUTION WIDTH 15.1 % (11.6-14.6)
[2022-06-10 00:53] LABS: CHLORIDE 105 mEq/L (98-107)
[2022-06-10] MEDS ORDERED: PHENYTOIN SODIUM EXTENDED 100MG CAPSULE PO NR (01:15)
[2022-06-10] MEDS ORDERED: LEVETIRACETAM 500MG TABLET PO ONE (02:15)
[2022-06-10 06:00] VITALS: BP 105/69
== END 2022-06-10 13:25 | disposition home or self-care (01) ==
LOC: ER 21:34
DX: R56.9 Unspecified convulsions (principal); Z86.73 Personal history of transient ischemic attack (TIA), and cerebral infarction without residual deficits; F17.200 Nicotine dependence, unspecified, uncomplicated; F12.10 Cannabis abuse, uncomplicated; Z79.899 Other long term (current) drug therapy
CPT/HCPCS: 36415; 80053; 80185; 85025; 99285; J1953; J7050